=== PATIENT | female | born 1995 | race Caucasian/White ===

== ENCOUNTER 2023-10-26 11:10 | Inpatient (IN) | payer OTHER, SELFPAY ==
[2023-10-26 11:33] VITALS: BP 126/72; BMI 29.6
[2023-10-26 11:51] LABS: % Basophils 0.1 % (0-2); % Eosinophils 0.3 % (0-6); % Immature Granulocytes 0.5 % (0-0.5); % Lymphocytes 18.7 % (20.5-51.1); % Monocytes 5.7 % (1.7-9.3); % Neutrophils 74.7 % (42.2-75.2); Absolute Lymphocytes 1.6 10^3/uL (1.2-3.4); Absolute Monocytes 0.5 10^3/uL (0.1-0.6); Absolute Neutrophils 6.5 10^3/uL (1.4-6.5); Hematocrit 34.6 % (37.0-47.0); Hemoglobin 11.8 g/dL (12.0-16.0); Mean Corp Hgb Conc. 34.1 g/dL (33.0-37.0); Mean Corpuscular Hgb 35.3 pg (27.0-31.0); Mean Corpuscular Volume 103.6 fL (81.0-99.0); Mean Platelet Volume 10.1 fL (7.4-10.4); Nucleated Red Blood Cells % 0 %; Platelet Count 167 10^3/uL (130-400); Red Blood Cell Count 3.34 10^6/uL (4.20-5.40); Red Cell Dist. Width 12.9 % (11.5-14.5); White Blood Cell Count 8.7 10^3/uL (4.8-10.8)
[2023-10-26] MEDS: SUBLIMAZE 100 MCG EPIDURAL (12:24)
[2023-10-26] MEDS: LR 1000 IV ×2 (12:24→19:19)
[2023-10-26] MEDS: FENTANYL/BUPIVACAINE 100 EPIDURAL ×2 (12:24→20:03)
[2023-10-26 12:44] LABS: Amphetamines Negative (Negative); Barbiturates Negative (Negative); Benzodiazepines Negative (Negative); Buprenorphine Negative (Negative); Cocaine Negative (Negative); Marijuana Positive (Negative); Methadone Negative (Negative); Methamphetamines Negative (Negative); Opiates Negative (Negative); Phencyclidine Negative (Negative); Tricyclic Antidepressants Negative (Negative)
[2023-10-26] MEDS: ZOFRAN 4 MG IV (16:21)
[2023-10-26] MEDS: PITOCIN 30 UNITS/NSS 500 ML IV (17:11)
[2023-10-26] MEDS: BENADRYL 50.5 MG IV (19:17)
[2023-10-26] MEDS: NEURONTIN 400 MG PO (23:34)
[2023-10-27 05:11] LABS: Hematocrit 34.2 % (37.0-47.0); Hemoglobin 11.8 g/dL (12.0-16.0)
[2023-10-27] MEDS: LEXAPRO 10 MG PO (08:07)
[2023-10-27] MEDS: NEURONTIN 400 MG PO ×3 (08:07→22:15)
[2023-10-27] MEDS: HYDROCORTISONE 2.5% OINTMENT 1 APPLIC TOPICAL (08:08)
[2023-10-27] MEDS: TYLENOL 650 MG PO ×2 (08:11→18:38)
[2023-10-27] MEDS: SENOKOT-S 1 TABLET PO (18:38)
[2023-10-28] MEDS: MOTRIN 600 MG PO ×2 (05:19→12:36)
[2023-10-28] MEDS: HYDROCORTISONE 2.5% OINTMENT 1 APPLIC TOPICAL (05:20)
[2023-10-28] MEDS: NEURONTIN 400 MG PO ×2 (08:15→16:00)
[2023-10-28] MEDS: LEXAPRO 10 MG PO (08:15)
--- NOTE | 2023-10-28 11:38 | CM ---
Met with new parents Madison and Jelani
Parents live at listed address together.
Parents have named their infant Jelani
Mom plans to breast feed and has a pump
Parents report having supplies for including car seat and crib
CM consult - Mom + tox screen for Marijuana at delivery
Meconium pending but RN reports preliminary test was + marijuana
Discussed with parents - + tox screen
Mom has been educated by RN about the possible effects of Marijuana on baby.
Mom reports she has a medical marijuana card
Mom has Alcohol abuse history with suicide attempt. Mom received treatment for depression and anxiety. Is on Lexapro and Gabapentin as well as uses Medical Marijuana.
Parents aware a report will be made with [facility]
Called [facility]
Spoke with Phyllis Steele
Report made regarding + tox screen
Infant should not be discharged until cleared by [facility]
[2023-10-28] MEDS: TYLENOL 650 MG PO (16:00)
[2023-10-28] MEDS: M-M-R II 0.5 ML SC (16:01)
[2023-10-30 14:20] LABS: Syphilis/T. pallidum Ab Reflex Negative (Negative)
== END 2023-10-28 16:00 | disposition home or self-care (01) | DRG 807 ==
LOC: LDRP 11:10
PROVIDERS: ADMITTING PHYSICIAN Obstetrics & Gynecology; FAMILY PHYSICIAN Family Medicine
PROC: 10E0XZZ Delivery of Products of Conception, External Approach (ICD-10-PCS; 2023-10-26)
PROC: 0KQM0ZZ Repair Perineum Muscle, Open Approach (ICD-10-PCS; 2023-10-26)
PROC: 3E0234Z Introduction of Serum, Toxoid and Vaccine into Muscle, Percutaneous Approach (ICD-10-PCS; 2023-10-28)
DX: O48.0 Post-term pregnancy (principal); Z37.0 Single live birth; O71.82 Other specified trauma to perineum and vulva; O70.1 Second degree perineal laceration during delivery; O69.1XX0 Labor and delivery complicated by cord around neck, with compression, not applicable or unspecified; Z3A.40 40 weeks gestation of pregnancy; Z23 Encounter for immunization
CPT/HCPCS: 88307; 36415; 80306; 85014; 85018; 85025; 86780; 86850; 86900; 86901; 90707